=== PATIENT | female | born 1970 | race Caucasian/White ===

== ENCOUNTER 2016-12-21 17:50 | Observation (INO) | payer MEDICAID ==
[~2016-12-21] VITALS: Ht 157.5 cm; Wt 68.4 kg
[2016-12-21] VITALS (7 sets, daily range): BP systolic 105–151; BP diastolic 52–82
[~2016-12-21 17:50] MED LIST: ACET-2267 PO; ASPI-892 PO; ASPI-999 PO; ASPI81TA19 GT; ATOR20TA66 PO; BUPR200T2 PO; CALC-921 PO; CARV6.25 PO; CITA20TA4 PO; CLON0.5T3 PO; CLOP75TA69 PO; CLPD75T PO; IBUP-30 PO; METO-333 PO; METO25TA2 PO; NITR0.4T SL; PANT40TA2 PO; PRAV20TA3 PO
[2016-12-21] MEDS ORDERED: ASPIRIN 81 MG CHEW (CHILDREN'S ASA) PO ONE (18:45)
[2016-12-21] MEDS ORDERED: RX-NITROGLYCERIN 0.4 MG TAB BTL 25'S SL PRN (18:45)
[2016-12-21 18:57] LABS: BASOPHILS # (AUTO) 0.1 10^3/uL (0.0-0.1); BASOPHILS % (AUTO) 1 % (0-10); EOSINOPHILS # (AUTO) 0.3 10^3/uL (0.0-0.3); EOSINOPHILS % (AUTO) 3 % (0-10); LYMPHOCYTES # (AUTO) 3.1 X 10^3 (1.0-4.0); LYMPHOCYTES % (AUTO) 29 % (12-44); MEAN CORPUSCULAR HEMOGLOBIN 31 PG (25-34); MEAN CORPUSCULAR HGB CONC 34 G/DL (32-36); MEAN CORPUSCULAR VOLUME 91 FL (80-99); MEAN PLATELET VOLUME 9.8 FL (7.4-10.4); MONOCYTES # (AUTO) 0.8 X 10^3 (0.0-1.0); MONOCYTES % (AUTO) 7 % (0-12); NEUTROPHILS # (AUTO) 6.5 X 10^3 (1.8-7.8); NEUTROPHILS % (AUTO) 61 % (42-75); PLATELET COUNT 336 10^3/uL (130-400); RED CELL DISTRIBUTION WIDTH 14.3 % (10.0-14.5); WHITE BLOOD COUNT 10.6 10^3/uL (4.3-11.0)
[2016-12-21] MEDS ORDERED: NITROGLYCERIN 2% OINT 1 GM UNIT DOSE PACKET TOP ONE (19:00)
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
[2016-12-21 19:13] LABS: INR 0.9 (0.8-1.4); PROTHROMBIN TIME PATIENT 11.6 SEC (12.2-14.7)
[2016-12-21 19:19] LABS: ALANINE AMINOTRANSFERASE 21 U/L (0-55); ALBUMIN 4.4 G/DL (3.2-4.5); AMYLASE 55 U/L (25-125); ANION GAP 9 MMOL/L (5-14); ASPARTATE AMINO TRANSFERASE 17 U/L (5-34); BILIRUBIN,TOTAL 0.4 MG/DL (0.1-1.0); BLOOD UREA NITROGEN 15 MG/DL (7-18); BUN/CREATININE RATIO 15; CALCIUM 9.2 MG/DL (8.5-10.1); CARBON DIOXIDE 25 MMOL/L (21-32); CHLORIDE 105 MMOL/L (98-107); CREATINE KINASE 107 U/L (29-168); CREATININE SERUM 0.99 MG/DL (0.60-1.30); GFR ESTIMATED 60; GLUCOSE 98 MG/DL (70-105); LIPASE 22 U/L (8-78); SODIUM 139 MMOL/L (135-145)
--- NOTE | 2016-12-21 19:19 | Diagnostic Imaging Report ---
INDICATION: Chest pain. COMPARISON: 02/16/16. EXAMINATION: Single view of the chest was obtained. FINDINGS: Clear lungs, bilaterally. The heart size is normal. There is no pneumothorax. The osseous structures are normal. IMPRESSION: Negative chest. Dictated by: Dictated on workstation # [id number]
[2016-12-21 19:26] LABS: TROPONIN I < 0.30 NG/ML (<0.30)
[2016-12-21] MEDS ORDERED: morphine INJ 10 MG/ML 1ML (SYR OR VIAL) IVP STA (19:46)
[2016-12-21] MEDS ORDERED: cefTRIAXone INJECTION 1,000 MG in NS (IVPB) 50 ML IV ONE (20:00)
[2016-12-21] MEDS ORDERED: OSELTAMIVIR 75 MG (TAMIFLU) BOX OF 10 PO SCH (21:00)
[2016-12-21] MEDS ORDERED: morphine INJ 4 MG/ML 1 ML (VIAL/SYRINGE) IV PRN (21:15)
[2016-12-21] MEDS ORDERED: CATHETER FLUSH 10 ML SYR IV PRN (21:15)
[2016-12-21] MEDS ORDERED: NITROGLYCERIN SUBLINGUAL 0.4 MG TAB (NITROSTAT) SL PRN (21:15)
[2016-12-21 21:46] LABS: BILIRUBIN,URINE NEGATIVE (NEGATIVE); KETONES,URINE NEGATIVE (NEGATIVE); LEUKOCYTE ESTERASE ,URINE 1+ (NEGATIVE); NITRITE,URINE NEGATIVE (NEGATIVE); PH,URINE 5 (5-9); PROTEIN,URINE NEGATIVE (NEGATIVE); UROBILINOGEN,URINE NORMAL (NORMAL)
[2016-12-21] MEDS ORDERED: CATHETER FLUSH 10 ML SYR IV SCH (22:00)
[2016-12-21] MEDS ORDERED: ACETAMINOPHEN 500 MG TAB (TYLENOL) PO PRN (22:30)
[2016-12-21] MEDS: meTOprolol TARTRATE 25 MG (LOPRESSOR) TABLET PO SCH (23:01)
[2016-12-21] MEDS: GABAPENTIN 100 MG (NEURONTIN) CAP PO SCH (23:01)
[2016-12-22] VITALS: BP 114/65
[2016-12-22] MEDS ORDERED: NITROGLYCERIN 2% OINT 1 GM UNIT DOSE PACKET TOP SCH
[2016-12-22] MEDS ORDERED: NITROGLYCERIN 2% OINT 1 GM UNIT DOSE PACKET TOP PRN
[2016-12-22 01:00] VITALS: BP 109/61
[2016-12-22 04:00] VITALS: BP 110/71
[2016-12-22 04:03] LABS: BASOPHILS # (AUTO) 0.1 10^3/uL (0.0-0.1); BASOPHILS % (AUTO) 1 % (0-10); EOSINOPHILS # (AUTO) 0.3 10^3/uL (0.0-0.3); EOSINOPHILS % (AUTO) 3 % (0-10); LYMPHOCYTES # (AUTO) 3.5 X 10^3 (1.0-4.0); LYMPHOCYTES % (AUTO) 34 % (12-44); MEAN CORPUSCULAR HEMOGLOBIN 31 PG (25-34); MEAN CORPUSCULAR HGB CONC 34 G/DL (32-36); MEAN CORPUSCULAR VOLUME 92 FL (80-99); MEAN PLATELET VOLUME 10.5 FL (7.4-10.4); MONOCYTES # (AUTO) 0.9 X 10^3 (0.0-1.0); MONOCYTES % (AUTO) 8 % (0-12); NEUTROPHILS # (AUTO) 5.7 X 10^3 (1.8-7.8); NEUTROPHILS % (AUTO) 55 % (42-75); PLATELET COUNT 317 10^3/uL (130-400); RED CELL DISTRIBUTION WIDTH 14.2 % (10.0-14.5); WHITE BLOOD COUNT 10.3 10^3/uL (4.3-11.0)
[2016-12-22 04:16] LABS: ALBUMIN 4.1 G/DL (3.2-4.5); BILIRUBIN,TOTAL 0.4 MG/DL (0.1-1.0); CALCIUM 8.9 MG/DL (8.5-10.1); CREATININE SERUM 1.01 MG/DL (0.60-1.30); MYOGLOBIN SERUM 63.7 NG/ML (10.0-92.0); TOTAL PROTEIN 6.6 G/DL (6.4-8.2)
[2016-12-22 07:52] VITALS: BP 135/76
[2016-12-22] MEDS ORDERED: SPIR50TA PO (08:42)
[2016-12-22] MEDS ORDERED: PANT40TA3 PO (08:42)
[2016-12-22] MEDS ORDERED: METF500T8 PO (08:42)
[2016-12-22] MEDS ORDERED: ASPI-983 PO (08:42)
[2016-12-22] MEDS ORDERED: BUSP10TA95 PO (08:42)
[2016-12-22] MEDS ORDERED: GABA-486 PO (08:42)
[2016-12-22] MEDS ORDERED: PARO40TA3 PO (08:42)
[2016-12-22] MEDS ORDERED: CLOP75TA28 PO (08:42)
[2016-12-22] MEDS ORDERED: PRAV40TA2 PO (08:42)
--- NOTE | 2016-12-22 08:55 | Consultation-Cardiology ---
HPI-Cardiology Cardiology Consultation: Date of Consultation 12/22/16 Date of Admission Attending Physician Beba Villegas MD Admitting Physician Torri Bell DO Consulting Physician MAGUI GOODMAN MD, FACP, FACC, FSCAI, CCDS HPI: Chief Complaint: Back pain with some chest discomfort 46 yo woman admitted to Dr Villegas with exacerbation of chronic upper back pain. Also has had chronic intermittent L parasternal discomfort that last from a few seconds to a few hours. Had had the same discomfort last night. Feel well right now. Has had an increase in calorie intake recently and has gained considerable wgt. Has chronic exertional shortness of breath. Has chronic intermittent leg swelling. Denies fever or chills Review of Systems-Cardiology Review of Systems Constitutional: lightheadedness malaise tiredness weight gain (over the last several months due to increased calorie intake, according to her) Eyes: No vision change Ears/Nose/Throat: No ear discharge, No nasal drainage, No recent hearing loss Respiratory: As described under HPI Cardiovascular: As described under HPI Gastrointestinal: No constipation, No nausea, No vomiting Genitourinary: No dysuria, No hematuria Musculoskeletal: As describe under HPI Skin: No rash, No ulcerations Psychiatric/Neurological: No focal weakness, No seizure, No syncope Hematologic: No bleeding abnormalities ERB-Fmolvb-Tlevpy Hx Patient Social History Alcohol Use: Denies Use Recreational Drug Use: No Smoking Status: Current Everyday Smoker Type Used: Cigarettes 2nd Hand Smoke Exposure: No Recent Foreign Travel: No Recent Infectious Disease Expo: No Hospitalization with Isolation: Denies Physical Abuse Screen: No Sexual Abuse: No Immunizations Up To Date Tetanus Booster (TDap): More than 5yrs Date of Influenza Vaccine: Jun 17, 2015 Past Medical History PMH As described under Assessment. Family Medical History Family Medical History: No distinct fam h/o early CAD or SCD Family History: Diabetes mellitus grandmother FH: cholecystectomy 19 MOTHER Hypertension 19 MOTHER Allergies and Home Medications Allergies Coded Allergies: Penicillins (Verified Allergy, Unknown, 04/20/15) Uncoded Allergies: ANESTHETICS (Allergy, Severe, 09/11/13) HARD TO WAKE UP. Home Medications Aspirin 81 Mg Tablet. 81 MG PO DAILY (Reported) Bupropion HCl 200 Mg Tablet.er 200 MG PO BID (Reported) Buspirone HCl 10 Mg Tablet 10 MG PO TID (Reported) LAST FILLED #90 10-10-16 Calcium Carb/Magnesium Hydrox 1 Each Tab.chew 1 TAB.CHEW PO TID PRN PRN INDIGESTION (Reported) Clopidogrel Bisulfate 75 Mg Tablet 75 MG PO DAILY (Reported) Gabapentin 100 Mg Capsule 100 MG PO BID (Reported) Metformin HCl 500 Mg Tab.er.24h 500 MG PO BID (Reported) LAST FILLED #60 10-12-16 Metoprolol Tartrate 25 Mg Tablet 12.5 MG PO BID (Reported) TAKES 1/2 (25MG) TABLET Nitroglycerin 0.4 Mg Tab.subl 0.4 MG SL UD PRN PRN CHEST PAIN (Reported) Pantoprazole Sodium 40 Mg Tablet.dr 40 MG PO DAILY (Reported) Paroxetine HCl 40 Mg Tablet 40 MG PO DAILY (Reported) Pravastatin Sodium 40 Mg Tablet 40 MG PO DAILY (Reported) Spironolactone 50 Mg Tablet 50 MG PO DAILY (Reported) Physical Exam-Cardiology Physical Exam Vital Signs/I&O Vital Sign - Last 12Hours 12/21/16 12/21/16 12/21/16 12/21/16 21:00 21:00 21:15 21:30 Temp 97.8 97.8 97.8 Pulse 67 74 73 77 Resp 19 19 19 B/P 151/73 135/77 134/80 Pulse Ox 94 93 92 12/21/16 12/21/16 12/21/16 12/21/16 21:45 22:00 22:30 23:00 Temp 97.8 97.8 97.8 97.8 Pulse 66 81 72 67 Resp 18 18 18 18 B/P 148/81 121/75 128/82 105/52 Pulse Ox 94 93 96 96 12/22/16 12/22/16 12/22/16 12/22/16 00:00 00:00 01:00 01:19 Temp 98.1 98.1 98.1 Pulse 71 71 72 83 Resp 18 18 18 B/P 114/65 114/65 109/61 Pulse Ox 97 97 96 O2 Delivery Room Air 12/22/16 12/22/16 04:00 07:52 Temp 98.5 96.7 Pulse 83 68 Resp 18 18 B/P 110/71 135/76 Pulse Ox 93 95 O2 Delivery Room Air Room Air Capillary Refill : Less Than 3 Seconds Constitutional: AAO x 3 well-developed well-nourished other (obsed) HEENT: PERRL EOMI Neck: No carotid bruit, carotid pulses are 2 + bilaterally Respiratory: No accessory muscle use, lungs clear to percussion lungs clear to auscultation Cardiovascular: regular rate-rhythm S1 and S2 Gastrointestinal: No tender, softNo guarding, audible bowel sounds Extremities: No clubbing, No cyanosis, No significant edema Neurologic/Psychiatric: oriented x 3 grossly intact power is 5/5 both on sides Skin: No rash on exposed areas, No ulcerations on exposed areas Data Review Labs Laboratory Tests 12/21/16 18:50: Activated Partial Thromboplast Time 31, Alanine Aminotransferase (ALT/SGPT) 21, Albumin 4.4, Alkaline Phosphatase 70, Amylase Level 55, Anion Gap 9, Aspartate Amino Transf (AST/SGOT) 17, B-Type Natriuretic Peptide 12.6, BUN/Creatinine Ratio 15, Basophils # (Auto) 0.1, Basophils (%) (Auto) 1, Blood Urea Nitrogen 15 , Calcium Level 9.2, Carbon Dioxide Level 25, Chloride Level 105, Creatine Kinase MB 2.1, Creatinine 0.99, Eosinophils # (Auto) 0.3, Eosinophils (%) (Auto ) 3, Estimat Glomerular Filtration Rate 60, Glucose Level 98, Hematocrit 44, Hemoglobin 14.9, INR Comment 0.9, Lipase 22, Lymphocytes # (Auto) 3.1, Lymphocytes (%) (Auto) 29, Magnesium Level 2.0, Mean Corpuscular Hemoglobin 31, Mean Corpuscular Hemoglobin Concent 34, Mean Corpuscular Volume 91, Mean Platelet Volume 9.8, Monocytes # (Auto) 0.8, Monocytes (%) (Auto) 7, Neutrophils # (Auto) 6.5, Neutrophils (%) (Auto) 61, Platelet Count 336, Potassium Level 4.0, Prothrombin Time 11.6L, Red Blood Count 4.80, Red Cell Distribution Width 14.3, Serum Test, Qualitative NEGATIVE, Sodium Level 139, Total Bilirubin 0.4, Total Creatine Kinase 107, Total Protein 7.0, Troponin I < 0.30, White Blood Count 10.6 12/21/16 20:30: Ur Tricyclic Antidepressants Screen NEGATIVE, Urine Amphetamines Screen NEGATIVE , Urine Barbiturates Screen NEGATIVE, Urine Benzodiazepines Screen NEGATIVE, Urine Cannabinoids Screen NEGATIVE, Urine Cocaine Screen NEGATIVE, Urine Methadone Screen NEGATIVE, Urine Methamphetamines Screen NEGATIVE, Urine Opiates Screen POSITIVEH, Urine Oxycodone Screen NEGATIVE, Urine Phencyclidine Screen NEGATIVE, Urine Propoxyphene Screen NEGATIVE 12/21/16 20:32: Urine Bacteria FEWH, Urine Bilirubin NEGATIVE, Urine Casts NONE, Urine Clarity SLIGHTLY CLOUDY, Urine Color YELLOW, Urine Crystals NONE, Urine Culture Indicated NO, Urine Glucose (UA) NEGATIVE, Urine Ketones NEGATIVE, Urine Leukocyte Esterase 1+H, Urine Mucus NEGATIVE, Urine Nitrite NEGATIVE, Urine Protein NEGATIVE, Urine RBC 2-5H, Urine RBC (Auto) 2+H, Urine Specific [place] 1.020, Urine Squamous Epithelial Cells 10-25H, Urine Urobilinogen NORMAL, Urine WBC 2-5, Urine pH 5 12/22/16 01:05: Troponin I < 0.30 12/22/16 03:30: Alanine Aminotransferase (ALT/SGPT) 20, Albumin 4.1, Alkaline Phosphatase 56, Anion Gap 13, Aspartate Amino Transf (AST/SGOT) 17, BUN/Creatinine Ratio 14, Basophils # (Auto) 0.1, Basophils (%) (Auto) 1, Blood Urea Nitrogen 14, Calcium Level 8.9, Carbon Dioxide Level 21, Chloride Level 104, Cholesterol Level 192, Creatinine 1.01, Eosinophils # (Auto) 0.3, Eosinophils (%) (Auto) 3, Estimat Glomerular Filtration Rate 59, Glucose Level 100, HDL Cholesterol 38L, Hematocrit 40, Hemoglobin 13.6, LDL Cholesterol Direct 147H, Lymphocytes # (Auto ) 3.5, Lymphocytes (%) (Auto) 34, Mean Corpuscular Hemoglobin 31, Mean Corpuscular Hemoglobin Concent 34, Mean Corpuscular Volume 92, Mean Platelet Volume 10.5H, Monocytes # (Auto) 0.9, Monocytes (%) (Auto) 8, Myoglobin 63.7, Neutrophils # (Auto) 5.7, Neutrophils (%) (Auto) 55, Platelet Count 317, Potassium Level 4.0, Red Blood Count 4.40, Red Cell Distribution Width 14.2, Sodium Level 138, Total Bilirubin 0.4, Total Protein 6.6, Triglycerides Level 106, VLDL Cholesterol 21, White Blood Count 10.3 Laboratory Tests 12/21/16 18:50 12/22/16 03:30 A/P-Cardiology Assessment/Admission Diagnosis Chest discomfort, nonspecific, without any evidence of ACS H/o stenting of RCA on 12/04/[address] Fish at [place], [place]: Promus Premier 2.25x12 and 2.5x20 stents. Thrombectomy of previous stents and placement of additional 3.5x20 mm Promus Premier stent on 04/20/15. In Jun, she underwent ANGELA of the prox mid PDA (Promus Ramy 2.5 x 20) by Dr Liz at [facility]. Cardiac cath of February 2016 showed patent stents in the mid RCA. Patent stent in the PDA of the RCA. The mid RCA stented area showes approx 30% angiographic stenosis. LVEF 60%. Elevated LVEDP. No significant MR Echo of 04/22/15 showed LVEF 65%, mild MR & TR, and PASP 25 mmHg H/o noncompliance with meds, now compliant since last [place] of 04/20/15 Chronic epigastric discomfort and nausea, suggetive of PUD or GERD or other GI pathology Chronic chest wall discomfort Obesity with BMI approx 46 Chronic tobacco use, continuing H/o methamphetamine use, has stopped since last [place] of 04/20/15 Anxiety H/o statin intolerance, nonspecific, but has lately been able to take it Discussion and Recomendations * Have advised outpatient f/u * Have advised med complianc * Have advised immediate and complete smoking cessation * Have advised wgt loss and have discussed strategies for that Clinical Quality Measures AMI/AHF: ASA po Prior to arrival: No DVT/VTE Risk/Contraindication: Risk Factor Score Per Nursin RFS Level Per Nursing on Admit: 4+=Very High MAGUI GOODMAN MD FACP FAC CCDS Dec 22, 2016 08:55
[2016-12-22] MEDS ORDERED: ASPIRIN E.C. 325 MG (ECOTRIN) TABLET PO SCH (09:00)
[2016-12-22] MEDS ORDERED: CHOL500049 PO (09:04)
[2016-12-22] MEDS ORDERED: EST30C VG (09:04)
[2016-12-22] MEDS: GABAPENTIN 100 MG (NEURONTIN) CAP PO SCH (09:44)
[2016-12-22] MEDS: meTOprolol TARTRATE 25 MG (LOPRESSOR) TABLET PO SCH (09:44)
[2016-12-22] MEDS ORDERED: FLU TRIvalent (5 YOA+) 2016-17 (AFLURIA) 0.5 ML IM ONE (09:45)
--- NOTE | 2016-12-22 11:22 | Discharge Instructions ---
Discharge [facility] Discharge Medications Continued Medications: Aspirin (Aspirin EC) 81 Mg Tablet.dr 81 MG PO DAILY TAB Buspirone HCl (Buspirone HCl) 10 Mg Tablet 10 MG PO TID LAST FILLED #90 10-10-16 TAB Cholecalciferol (Vitamin D3) (Vitamin D3) 50,000 Unit Capsule 64407 UNITS PO Mo Clopidogrel Bisulfate (Clopidogrel) 75 Mg Tablet 75 MG PO DAILY TAB Estrogens Conjugated (Premarin) 30 Gm Cr VG TWICE WEEKLY EA Gabapentin (Gabapentin) 100 Mg Capsule 100 MG PO BID CAP Metformin HCl (Metformin HCl ER) 500 Mg Tab.er.24h 1000 MG PO DAILY LAST FILLED #60 10-12-16 TAKES 2 (500MG) TABLETS TAB Metoprolol Tartrate (Metoprolol Tartrate) 25 Mg Tablet 12.5 MG PO BID TAKES 1/2 (25MG) TABLET TAB Nitroglycerin (Nitrostat) 0.4 Mg Tab.subl 0.4 MG SL UD PRN CHEST PAIN TAB Pantoprazole Sodium (Pantoprazole Sodium) 40 Mg Tablet.dr 40 MG PO DAILY TAB Paroxetine HCl (Paroxetine HCl) 40 Mg Tablet 40 MG PO DAILY TAB Pravastatin Sodium (Pravastatin Sodium) 40 Mg Tablet 40 MG PO DAILY TAB Spironolactone (Aldactone) 50 Mg Tablet 50 MG PO DAILY TAB Patient Instructions Goal/Follow Up Appt: Follow up with Syd Bojorquez APRN on December 28 at 3:20 pm. Return to [facility] For: Fever, worsening chest pain, shortness of breath Activity & Diet Discharge Diet: ADA Diet Activity as Tolerated: Yes Copy Copies To 1: JORDON Coello BETHANY N MD Dec 22, 2016 11:22 am
[2016-12-22 11:45] VITALS: BP_SYST 116; BP_SYST 124; BP_DIAS 64; BP_DIAS 71
[2016-12-22 12:17] VITALS: BP 135/76
--- NOTE | 2016-12-22 16:24 | Short Stay Summary ---
HPI History of Present Illness: Patient presented to ER after having onset of back pain and then coldness in her chest and numbness and tingling in her hands and arms starting around 3:30 pm and which did not resolve until she received nitropaste. She is feeling better this morning. Source: patient Attending Physician Beba Villegas MD PCP Torri Bell DO Consult Date of Admission Dec 21, 2016 at 8:20 pm Home Medications Home Medications Reviewed patient Home Medication Reconciliation Form Allergies Coded Allergies: Penicillins (Verified Allergy, Unknown, 04/20/15) Uncoded Allergies: ANESTHETICS (Allergy, Severe, 09/11/13) HARD TO WAKE UP. [id number] Hx Patient Social History Alcohol Use: Denies Use Recreational Drug Use: No Smoking Status: Current Everyday Smoker Type Used: Cigarettes 2nd Hand Smoke Exposure: No Recent Foreign Travel: No Contact w/other who traveled: No Recent Hopitalizations: No Recent Infectious Disease Expo: No Physical Abuse Screen: No Sexual Abuse: No Immunizations Up To Date Tetanus Booster (TDap): More than 5yrs Date of Influenza Vaccine: Jun 17, 2015 Past Medical History PMHx: CA s/p stenting Hyperlipidemia Anxiety Tobacco abuse SurgHx: x 3 Tubal ligation Cardiac stenting Hernia repair Family Medical History Significant Family History: Diabetes, Hypertension Review of Systems ([facility]) Constitutional: No fever Cardiovascular: see HPI Reviewed Test Results Reviewed Test Results Lab Laboratory Tests Test 12/21/16 18:50 12/21/16 20:30 12/21/16 20:32 12/22/16 01:05 Range/Units Activated Partial Thromboplast Time 31 24-35 SEC Alanine Aminotransferase (ALT/SGPT) 21 0-55 U/L Albumin 4.4 3.2-4.5 G/DL Alkaline Phosphatase 70 40-136 U/L Amylase Level 55 25-125 U/L Anion Gap 9 5-14 MMOL/L Aspartate Amino Transf (AST/SGOT) 17 5-34 U/L B-Type Natriuretic Peptide 12.6 <100.0 PG/ML BUN/Creatinine Ratio 15 Basophils # (Auto) 0.1 0.0-0.1 10^3/uL Basophils (%) (Auto) 1 0-10 % Blood Urea Nitrogen 15 7-18 MG/DL Calcium Level 9.2 8.5-10.1 MG/DL Carbon Dioxide Level 25 21-32 MMOL/L Chloride Level 105 98-107 MMOL/L Creatine Kinase MB 2.1 <6.6 NG/ML Creatinine 0.99 0.60-1.30 MG/DL Eosinophils # (Auto) 0.3 0.0-0.3 10^3/uL Eosinophils (%) (Auto) 3 0-10 % Estimat Glomerular Filtration Rate 60 Glucose Level 98 70-105 MG/DL Hematocrit 44 35-52 % Hemoglobin 14.9 11.5-16.0 G/DL INR Comment 0.9 0.8-1.4 Lipase 22 8-78 U/L Lymphocytes # (Auto) 3.1 1.0-4.0 X 10^3 Lymphocytes (%) (Auto) 29 12-44 % Magnesium Level 2.0 1.8-2.4 MG/DL Mean Corpuscular Hemoglobin 31 25-34 PG Mean Corpuscular Hemoglobin Concent 34 32-36 G/DL Mean Corpuscular Volume 91 80-99 FL Mean Platelet Volume 9.8 7.4-10.4 FL Monocytes # (Auto) 0.8 0.0-1.0 X 10^3 Monocytes (%) (Auto) 7 0-12 % Neutrophils # (Auto) 6.5 1.8-7.8 X 10^3 Neutrophils (%) (Auto) 61 42-75 % Platelet Count 336 130-400 10^3/uL Potassium Level 4.0 3.6-5.0 MMOL/L Prothrombin Time 11.6 L 12.2-14.7 SEC Red Blood Count 4.80 4.35-5.85 10^6/uL Red Cell Distribution Width 14.3 10.0-14.5 % Serum Test, Qualitative NEGATIVE NEGATIVE Sodium Level 139 135-145 MMOL/L Total Bilirubin 0.4 0.1-1.0 MG/DL Total Creatine Kinase 107 29-168 U/L Total Protein 7.0 6.4-8.2 G/DL Troponin I < 0.30 < 0.30 <0.30 NG/ML White Blood Count 10.6 4.3-11.0 10^3/uL Ur Tricyclic Antidepressants Screen NEGATIVE NEGATIVE Urine Amphetamines Screen NEGATIVE NEGATIVE Urine Barbiturates Screen NEGATIVE NEGATIVE Urine Benzodiazepines Screen NEGATIVE NEGATIVE Urine Cannabinoids Screen NEGATIVE NEGATIVE Urine Cocaine Screen NEGATIVE NEGATIVE Urine Methadone Screen NEGATIVE NEGATIVE Urine Methamphetamines Screen NEGATIVE NEGATIVE Urine Opiates Screen POSITIVE H NEGATIVE Urine Oxycodone Screen NEGATIVE NEGATIVE Urine Phencyclidine Screen NEGATIVE NEGATIVE Urine Propoxyphene Screen NEGATIVE NEGATIVE Urine Bacteria FEW H /HPF Urine Bilirubin NEGATIVE NEGATIVE Urine Casts NONE /LPF Urine Clarity SLIGHTLY CLOUDY Urine Color YELLOW Urine Crystals NONE /LPF Urine Culture Indicated NO Urine Glucose (UA) NEGATIVE NEGATIVE Urine Ketones NEGATIVE NEGATIVE Urine Leukocyte Esterase 1+ H NEGATIVE Urine Mucus NEGATIVE /LPF Urine Nitrite NEGATIVE NEGATIVE Urine Protein NEGATIVE NEGATIVE Urine RBC 2-5 H /HPF Urine RBC (Auto) 2+ H NEGATIVE Urine Specific [place] 1.020 1.016-1.022 Urine Squamous Epithelial Cells 10-25 H /HPF Urine Urobilinogen NORMAL NORMAL MG/DL Urine WBC 2-5 /HPF Urine pH 5 5-9 Test 12/22/16 03:30 Range/Units Alanine Aminotransferase (ALT/SGPT) 20 0-55 U/L Albumin 4.1 3.2-4.5 G/DL Alkaline Phosphatase 56 40-136 U/L Anion Gap 13 5-14 MMOL/L Aspartate Amino Transf (AST/SGOT) 17 5-34 U/L BUN/Creatinine Ratio 14 Basophils # (Auto) 0.1 0.0-0.1 10^3/uL Basophils (%) (Auto) 1 0-10 % Blood Urea Nitrogen 14 7-18 MG/DL Calcium Level 8.9 8.5-10.1 MG/DL Carbon Dioxide Level 21 21-32 MMOL/L Chloride Level 104 98-107 MMOL/L Cholesterol Level 192 < 200 MG/DL Creatinine 1.01 0.60-1.30 MG/DL Eosinophils # (Auto) 0.3 0.0-0.3 10^3/uL Eosinophils (%) (Auto) 3 0-10 % Estimat Glomerular Filtration Rate 59 Glucose Level 100 70-105 MG/DL HDL Cholesterol 38 L 40-60 MG/DL Hematocrit 40 35-52 % Hemoglobin 13.6 11.5-16.0 G/DL LDL Cholesterol Direct 147 H 1-129 MG/DL Lymphocytes # (Auto) 3.5 1.0-4.0 X 10^3 Lymphocytes (%) (Auto) 34 12-44 % Mean Corpuscular Hemoglobin 31 25-34 PG Mean Corpuscular Hemoglobin Concent 34 32-36 G/DL Mean Corpuscular Volume 92 80-99 FL Mean Platelet Volume 10.5 H 7.4-10.4 FL Monocytes # (Auto) 0.9 0.0-1.0 X 10^3 Monocytes (%) (Auto) 8 0-12 % Myoglobin 63.7 10.0-92.0 NG/ML Neutrophils # (Auto) 5.7 1.8-7.8 X 10^3 Neutrophils (%) (Auto) 55 42-75 % Platelet Count 317 130-400 10^3/uL Potassium Level 4.0 3.6-5.0 MMOL/L Red Blood Count 4.40 4.35-5.85 10^6/uL Red Cell Distribution Width 14.2 10.0-14.5 % Sodium Level 138 135-145 MMOL/L Total Bilirubin 0.4 0.1-1.0 MG/DL Total Protein 6.6 6.4-8.2 G/DL Triglycerides Level 106 <150 MG/DL VLDL Cholesterol 21 5-40 MG/DL White Blood Count 10.3 4.3-11.0 10^3/uL Physical Exam-([facility]) Physical Exam Vital Signs VS - Last 72 Hours, by Label 12/21/16 12/21/16 12/21/16 12/21/16 18:30 18:30 20:22 20:30 Temp 98.7 98.7 Pulse 75 71 Resp 20 19 B/P 144/115 Pulse Ox 97 95 94 O2 Delivery Room Air Room Air Room Air 12/21/16 12/21/16 12/21/16 12/21/16 21:00 21:00 21:15 21:30 Temp 97.8 97.8 97.8 Pulse 67 74 73 77 Resp 19 19 19 B/P 151/73 135/77 134/80 Pulse Ox 94 93 92 12/21/16 12/21/16 12/21/16 12/21/16 21:45 22:00 22:30 23:00 Temp 97.8 97.8 97.8 97.8 Pulse 66 81 72 67 Resp 18 18 18 18 B/P 148/81 121/75 128/82 105/52 Pulse Ox 94 93 96 96 12/22/16 12/22/16 12/22/16 12/22/16 00:00 00:00 01:00 01:19 Temp 98.1 98.1 98.1 Pulse 71 71 72 83 Resp 18 18 18 B/P 114/65 114/65 109/61 Pulse Ox 97 97 96 O2 Delivery Room Air 12/22/16 12/22/16 12/22/16 12/22/16 04:00 04:00 07:00 07:52 Temp 98.5 96.7 Pulse 83 68 68 Resp 18 18 B/P 110/71 135/76 Pulse Ox 93 94 95 O2 Delivery Room Air Room Air 12/22/16 12/22/16 11:45 12:17 Temp 98.5 Pulse 73 68 Resp 16 18 B/P 124/64 135/76 Pulse Ox 95 95 O2 Delivery Room Air Capillary Refill : Less Than 3 Seconds General Appearance: WD/WN no apparent distress Respiratory: lungs clear normal breath sounds Cardiovascular: regular rate, rhythm no murmur Gastrointestinal: normal bowel sounds non tender soft Neurologic/Psychiatric: normal mood/affect Short Stay Diagnosis Discharge Diagnosis-Short Stay Admission Diagnosis Chest pain Final Discharge Diagnosis Chest pain- with history of stenting, seen by Cardiology and not felt to be cardiac. Negative enzymes and no acute EKG changes. Discharged to home. Conclusion Plan See final discharge diagnosis Clinical Quality Measures AMI/AHF: ASA po Prior to arrival: No DVT/VTE Risk/Contraindication: Risk Factor Score Per Nursin RFS Level Per Nursing on Admit: 4+=Very High Copy Copies To 1: JORDON Coello BETHANY N MD Dec 22, 2016 4:24 pm
== END 2016-12-22 11:19 | disposition home or self-care (01) ==
LOC: EDUNIT# 17:50 → ER 17:51 → CSD 20:02 → UNDOADMOB 20:02 → CSD 20:20 → UNDODISOB 12-22 12:10
PROVIDERS: ADMIT Family Medicine; ATTEND Family Medicine
DX: R07.9 Chest pain, unspecified (principal); I25.10 Atherosclerotic heart disease of native coronary artery without angina pectoris; I10 Essential (primary) hypertension; E78.5 Hyperlipidemia, unspecified; F41.9 Anxiety disorder, unspecified; K21.9 Gastro-esophageal reflux disease without esophagitis; G62.9 Polyneuropathy, unspecified; F17.210 Nicotine dependence, cigarettes, uncomplicated; E66.9 Obesity, unspecified; Z68.42 Body mass index [BMI] 45.0-49.9, adult; Z95.5 Presence of coronary angioplasty implant and graft; Z79.82 Long term (current) use of aspirin; Z79.899 Other long term (current) drug therapy; Z23 Encounter for immunization
CPT/HCPCS: 36415; 71010; 80053; 80061; 80306; 81000; 82150; 82550; 82553; 83690; 83735; 83874; 83880; 84484; 84703; 85025; 85610; 85730; 93005; 93041; 96374; G0378

== ENCOUNTER 2017-06-14 05:42 | Outpatient (CLI) | payer MEDICAID ==
[~2017-06-14] VITALS: Ht 157.5 cm; Wt 113.7 kg
[~2017-06-14 05:42] MED LIST changes: +ASPI-983 PO; +BUSP10TA95 PO; +CHOL500049 PO; +CLOP75TA28 PO; +EST30C VG; +GABA-486 PO; +METF500T8 PO; +PANT40TA3 PO; +PARO40TA3 PO; +PRAV40TA2 PO; +SPIR50TA PO
== END 2017-06-14 14:57 ==
LOC: PREOP 05:42
PROVIDERS: ATTEND Surgery
DX: Z01.818 Encounter for other preprocedural examination (principal); K21.9 Gastro-esophageal reflux disease without esophagitis; K92.1 Melena; Z80.0 Family history of malignant neoplasm of digestive organs

== ENCOUNTER 2017-06-19 12:46 | Day surgery (SDC) | payer MEDICAID ==
[~2017-06-19] VITALS: Ht 157.5 cm; Wt 113.7 kg
[2017-06-19] MEDS ORDERED: LACTATED RINGERS 1,000 ML IV ONE ×2 (12:56→13:15)
--- NOTE | 2017-06-19 13:11 | Progress Note-Pre Operative ---
Pre-Operative Progress Note H&P Reviewed The H&P was reviewed, patient examined and no changes noted. Date Seen by Provider: Jun 19, 2017 Time Seen by Provider: 13:10 Date H&P Reviewed: Jun 19, 2017 Time H&P Reviewed: 13:10 Pre-Operative Diagnosis: gerd, bright red blood in stool, family history colon cancer YULISSA YODER DO Jun 19, 2017 1:11 pm
[2017-06-19 13:13] VITALS: BP 137/71
[2017-06-19] MEDS ORDERED: BENZOCAINE 20% SPRAY (HURRICANE) 60 ML CAN MT ONE (13:15)
[2017-06-19] MEDS ORDERED: PROPOFOL INJECTION 50 ML IV ONE (13:16)
[2017-06-19] MEDS ORDERED: MIDAZOLAM 2 MG/2 ML (VERSED) VIAL ONE (13:16)
[2017-06-19] MEDS ORDERED: HURRICAINE EXT TUBE (BENZOCAINE) ONE (13:17)
[2017-06-19] MEDS ORDERED: proPOfol 200 MG/20 ML (DIPRIVAN) VIAL IV ONE (13:49)
--- NOTE | 2017-06-19 14:06 | Progress Note-Post Operative ---
Post-Operative Progess Note Surgeon (s)/Wind Turbine Mechanical Engineer (s) Surgeon YULISSA YODER DO Wind Turbine Mechanical Engineer: na Pre-Operative Diagnosis gerd, bright red blood in stool, family history colon cancer Post-Operative Diagnosis hiatal hernia, gastritis, colon polyps Procedure & Operative Findings Date of Procedure 06/19/17 Procedure Performed/Findings egd c biopsies and colonoscopy with hot bx polypectomy x 7 Anesthesia Type per head silverman Estimated Blood Loss Estimated blood loss (mL): scant Specimens/Packing Specimens Removed antrum, body and colon polyps YULISSA YODER DO Jun 19, 2017 2:06 pm
[2017-06-19] MEDS ORDERED: SUCR1TAB36 PO (14:10)
--- NOTE | 2017-06-19 14:11 | Discharge Inst-Simple/Standard ---
Discharge Inst-Standard Discharge Medications New, Converted or Re-Newed RX: Transmitted to Pharmacy Patient Instructions/Follow Up Plan of Care/Instructions/FU: 2-3 weeks Andrea Hold aspirin and plavix for 4 more days then restart Activity as Tolerated: Yes Discharge Diet: Regular Diet YULISSA YODER DO Jun 19, 2017 2:11 pm
[2017-06-19 14:25] VITALS: BP 136/81
[2017-06-19 14:50] VITALS: BP 139/89
[2017-06-19 14:55] VITALS: BP 139/89
--- NOTE | 2017-06-19 16:50 | OPERATIVE REPORT ---
DATE OF SERVICE: 06/19/2017 PREOPERATIVE DIAGNOSES: 1. Gastroesophageal reflux disease. 2. Bright red blood in stool. 3. Family history of colon cancer. POSTOPERATIVE DIAGNOSES: 1. Hiatal hernia. 2. Gastritis. 3. Colon polyps. PROCEDURE: EGD with biopsies and colonoscopy with hot biopsy polypectomy x7. ANESTHESIA: Per MANAGER OF LOSS PREVENTION OPERATIONS. ESTIMATED BLOOD LOSS: Scant. SPECIMENS: Antrum, body and colon polyps. INDICATIONS: The patient is a 47-year-old female with reflux symptoms and bright red blood in the stool with family history of colon cancer. She was recommended to have EGD and colonoscopy. She understands risks and benefits and wishes to proceed. Consent was signed and on chart. DESCRIPTION OF PROCEDURE: The patient was taken to the endoscopy suite, placed in left lateral recumbent position. Timeout was performed. Scope was inserted in mouth, down into esophagus, stomach and into the duodenum without difficulty. There are no polyps, masses or ulcerations. Scope was then slowly retracted back into the stomach, which was further insufflated noting some erythematous and inflamed areas. Biopsy of the antrum was obtained. Biopsy of the body was also obtained. Scope was also retroflexed noting a small hiatal hernia. No other pathology noted. Scope was returned to its normal position, slowly withdrawn to the distal esophagus which had no erythematous changes. No polyps, masses or ulcerations. Scope was slowly retracted back noting no other pathology. Digital rectal exam was performed. There were no palpable polyps, masses or ulcerations. Scope was inserted into the rectum and advanced all the way to the cecum with minimal difficulty. There were no polyps, masses or ulcerations. Scope was slowly retracted back . Prep was adequate. There were no polyps, masses or ulcerations in the cecum, ascending and transverse colon. The descending colon had a small polyp was present, which hot biopsy polypectomy was performed. Scope was continued slowly retracted back into the sigmoid colon where there are three small polyps present, which hot biopsy polypectomy was performed. Scope was continuously retracted back into the rectum where a small area of three more small polyps were present, which hot biopsy polypectomy was performed. Scope was also retroflexed noting no other pathology. Scope was returned to its normal position, slowly withdrawn until completely removed. The patient tolerated the procedure well without any complications. She was taken to recovery room in stable condition. RECOMMENDATIONS: The patient will follow up in the office in two to three weeks to discuss pathology. We recommend repeat colonoscopy in three years for reevaluation due to the multiple small polyps. The patient is currently on Protonix, will add Carafate to see if she has any improvement in her symptoms. Job ID: [id number] DocumentID: [id number] Dictated Date: 06/19/2017 14:09:25 Television And Radio Repairer Date: 06/19/2017 16:49:10 Dictated By: YULISSA YODER DO
== END 2017-06-19 14:55 | disposition home or self-care (01) ==
LOC: ENDO 12:46
PROVIDERS: ATTEND Surgery
DX: K92.1 Melena (principal); D12.5 Benign neoplasm of sigmoid colon; K63.5 Polyp of colon; K62.1 Rectal polyp; K21.9 Gastro-esophageal reflux disease without esophagitis; K44.9 Diaphragmatic hernia without obstruction or gangrene; K29.70 Gastritis, unspecified, without bleeding; Z80.0 Family history of malignant neoplasm of digestive organs; I25.10 Atherosclerotic heart disease of native coronary artery without angina pectoris; E78.5 Hyperlipidemia, unspecified; F17.210 Nicotine dependence, cigarettes, uncomplicated; F32.9 Major depressive disorder, single episode, unspecified; F41.9 Anxiety disorder, unspecified; Z95.5 Presence of coronary angioplasty implant and graft; Z79.02 Long term (current) use of antithrombotics/antiplatelets; Z79.82 Long term (current) use of aspirin; Z79.899 Other long term (current) drug therapy

== ENCOUNTER → 2018-04-16 | Outpatient (CLI) | payer MEDICAID ==
[~2018-04-16] MED LIST changes: +REGADENOSON 0.4 MG/5 ML SYR (LEXISCAN) IV ONE; +SUCR1TAB36 PO
[2018-04-16] MEDS: CATHETER FLUSH 10 ML SYR IV PRN ×2 (11:59→13:13)
[2018-04-16 13:10] VITALS: BP 131/75
--- NOTE | 2018-04-17 01:38 | STRESS TEST ---
DATE OF SERVICE: 04/16/2018 RESTING AND POST-REGADENOSON TECHNETIUM-99M TETROFOSMIN SPECT CT IMAGING ORDERING PHYSICIAN: Sayda Currie APRN. PRIMARY CARE PHYSICIAN: Dr. Bell. OTHER PHYSICIAN: [facility]. Baseline images were carried out after injection of 9.98 mCi of technetium-99m Tetrofosmin. This was followed by 0.4 mg of regadenoson and 30.7 mCi of technetium-99m Tetrofosmin for stress imaging. The electrocardiogram showed sinus rhythm and the electrocardiogram did not change significantly with the regadenoson infusion. The patient tolerated the procedure well. Review of images at rest and following stress does not indicate any significant perfusion defects consistent with significant myocardial ischemia or infarction. Gated images show normal global left ventricular systolic function with normal regional wall motion. Left ventricular ejection fraction is calculated to be 69%. Left ventricular end diastolic volume is 56 mL. TID is absent (1.02). CONCLUSIONS: 1. No evidence of significant myocardial ischemia or infarction on this study. 2. Normal regional wall motion. 3. Normal global left ventricular systolic function with a calculated ejection fraction of 69%. Job ID: [id number] DocumentID: [id number] Dictated Date: 04/16/2018 20:00:12 Mill Roll Rewinder Date: 04/17/2018 01:37:31 Dictated By: MAGUI GOODMAN MD, MA, FACP, FACC,
== END ==
LOC: CARD 11:38
PROVIDERS: ATTEND Nurse Practitioner Family
DX: R07.89 Other chest pain (principal); I25.10 Atherosclerotic heart disease of native coronary artery without angina pectoris; I77.89 Other specified disorders of arteries and arterioles; E78.5 Hyperlipidemia, unspecified; E66.09 Other obesity due to excess calories; Z72.0 Tobacco use
CPT/HCPCS: 78452; 93017

== ENCOUNTER 2019-02-26 17:12 | Emergency (ER) | payer MEDICAID, OTHER ==
[~2019-02-26] VITALS: Ht 157.5 cm; Wt 113.4 kg
[~2019-02-26 17:12] MED LIST changes: -REGADENOSON 0.4 MG/5 ML SYR (LEXISCAN) IV ONE
[2019-02-26 18:11] LABS: BILIRUBIN,URINE NEGATIVE (NEGATIVE); CLARITY,URINE SLIGHTLY CLOUDY; COLOR,URINE YELLOW; GLUCOSE, URINE (UA) NEGATIVE (NEGATIVE); KETONES,URINE NEGATIVE (NEGATIVE); LEUKOCYTE ESTERASE ,URINE 1+ (NEGATIVE); NITRITE,URINE NEGATIVE (NEGATIVE); PH,URINE 6 (5-9); PROTEIN,URINE NEGATIVE (NEGATIVE); UROBILINOGEN,URINE NORMAL (NORMAL)
[2019-02-26] MEDS ORDERED: LACTATED RINGERS 1,000 ML IV ONE (18:11)
[2019-02-26] MEDS ORDERED: KETOROLAC 30 MG/ML VIAL IVP ONE (18:15)
[2019-02-26] MEDS ORDERED: ONDANSETRON 4 MG/2 ML (SDV) Z0FRAN IVP ONE (18:15)
[2019-02-26 18:19] LABS: BASOPHILS % (AUTO) 0 % (0-10); EOSINOPHILS # (AUTO) 0.3 10^3/uL (0.0-0.3); EOSINOPHILS % (AUTO) 2 % (0-10); HEMATOCRIT 41 % (35-52); HEMOGLOBIN 13.8 G/DL (11.5-16.0); LYMPHOCYTES # (AUTO) 2.9 X 10^3 (1.0-4.0); LYMPHOCYTES % (AUTO) 26 % (12-44); MEAN CORPUSCULAR HEMOGLOBIN 30 PG (25-34); MEAN CORPUSCULAR HGB CONC 33 G/DL (32-36); MEAN CORPUSCULAR VOLUME 89 FL (80-99); MEAN PLATELET VOLUME 9.6 FL (7.4-10.4); MONOCYTES % (AUTO) 9 % (0-12); NEUTROPHILS # (AUTO) 7.1 X 10^3 (1.8-7.8); NEUTROPHILS % (AUTO) 63 % (42-75); PLATELET COUNT 326 10^3/uL (130-400); RED CELL DISTRIBUTION WIDTH 14.8 % (10.0-14.5); WHITE BLOOD COUNT 11.1 10^3/uL (4.3-11.0)
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
[2019-02-26 18:22] LABS: BACTERIA,URINE FEW /HPF; RBC,URINE 0-2 /HPF
[2019-02-26] MEDS ORDERED: ASPIRIN 81 MG CHEW (CHILDREN'S ASA) PO ONE (18:30)
[2019-02-26 18:33] LABS: ALANINE AMINOTRANSFERASE 19 U/L (0-55); ALBUMIN 4.2 GM/DL (3.2-4.5); ALKALINE PHOSPHATASE 67 U/L (40-136); BILIRUBIN,TOTAL 0.3 MG/DL (0.1-1.0); BUN/CREATININE RATIO 16; CALCIUM 9.1 MG/DL (8.5-10.1); CARBON DIOXIDE 24 MMOL/L (21-32); CHLORIDE 106 MMOL/L (98-107); CREATININE SERUM 0.83 MG/DL (0.60-1.30); GFR ESTIMATED > 60; GLUCOSE 88 MG/DL (70-105); LIPASE 23 U/L (8-78); MAGNESIUM 1.8 MG/DL (1.8-2.4); POTASSIUM 4.3 MMOL/L (3.6-5.0); SODIUM 139 MMOL/L (135-145); TOTAL PROTEIN 7.1 GM/DL (6.4-8.2)
--- NOTE | 2019-02-26 19:08 | Diagnostic Imaging Report ---
Portable chest compared to prior study from December 21, 2016. INDICATION: Right-sided chest pain. FINDINGS: The lungs appear clear without focal infiltrate or evidence of an effusion. There is no pneumothorax. Heart size and mediastinal contours appear appropriate. Pulmonary vascularity appears normal. No acute osseous abnormality is evident. IMPRESSION: 1. No radiographic evidence of an acute cardiopulmonary process. 2. No evidence of rib fracture. Dictated by: Dictated on workstation # [id number]
[2019-02-26] MEDS ORDERED: IOHEXOL 350 MG/ML 100 ML (OMNIPAQUE 350) VIAL IV ONE (20:30)
[2019-02-26] MEDS ORDERED: HOLD METFORMIN - RECEIVED CONTRAST 20 ML VIAL IV SCH (20:30)
--- NOTE | 2019-02-26 20:49 | Diagnostic Imaging Report ---
PROCEDURE: CT abdomen and pelvis with contrast. TECHNIQUE: Multiple contiguous axial images were obtained through the abdomen and pelvis after administration of intravenous contrast. Auto Exposure Controls were utilized during the CT exam to meet ALARA standards for radiation dose reduction. INDICATION: Right-sided abdominal and right shoulder pain. COMPARISON: No relevant comparison available. FINDINGS: The lung bases demonstrate some minimal dependent atelectasis. There is no pleural or pericardial effusion. The liver demonstrates no evidence of a focal intrahepatic abnormality. The gallbladder is nondistended without radiodense gallstone or evidence of biliary dilatation. The spleen appears normal in size. The pancreas is unremarkable. There is no adrenal mass. There are bilateral masses involving the kidneys. The larger is on the right. This mass measures up to 7.2 x 4.7 x 4.9 cm. A smaller mass on the left measures 2.4 x 2.6 x 1.5 cm. Again there is a questionable tiny similar lesion at the inferior pole of the left kidney which may be a small region of cortical scarring. These masses demonstrate internal septations but are largely of fat density. 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 Other neoplastic entity do contain fat which includes renal cell carcinoma and oncocytoma. Given the bilateral nature, correlate for any known history of tuberous sclerosis. The small and large bowel are normal in caliber without evidence of obstruction. There is no abnormal bowel thickening. The appendix is normal. There is no free air or free fluid. The urinary bladder, uterus and adnexa are unremarkable. There are no pathologically enlarged lymph nodes. Atherosclerotic calcifications throughout the aorta. There is no acute or suspicious osseous abnormality. IMPRESSION: 1. Bilateral renal masses largely composed of macroscopic fat. 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 Bilateral renal angiomyolipomas are often seen in the setting of tuberous sclerosis complex. Correlate for any known history of a seizure disorder. Brain imaging could be considered if clinically appropriate. 2. Less likely etiologies of fat-containing lesions do include neoplastic processes such as renal cell carcinoma. Fat can also be contained in oncocytomas. 3. The kidneys appear nonobstructed without hydronephrosis though the right-sided renal mass does displace the right-sided proximal ureter. 4. No findings of an acute inflammatory or obstructive process. 5. No findings to suggest metastatic disease. Dictated by: Dictated on workstation # [id number]
[2019-02-26] MEDS ORDERED: ONDA4TAB11 PO (21:14)
[2019-02-26] MEDS ORDERED: ACHD5005 PO (21:14)
[2019-02-26] MEDS ORDERED: RX-HYDROCODONE/APAP 5/325 MG #4 TAB PK PO PRN (21:15)
[2019-02-26 21:35] VITALS: BP 135/85
== END 2019-02-26 21:40 | disposition home or self-care (01) ==
LOC: EDUNIT# 17:12 → ER 17:13
DX: A08.4 Viral intestinal infection, unspecified (principal); N28.89 Other specified disorders of kidney and ureter; I25.10 Atherosclerotic heart disease of native coronary artery without angina pectoris; I25.2 Old myocardial infarction; E78.00 Pure hypercholesterolemia, unspecified; I10 Essential (primary) hypertension; F41.9 Anxiety disorder, unspecified; F32.9 Major depressive disorder, single episode, unspecified; E11.40 Type 2 diabetes mellitus with diabetic neuropathy, unspecified; K21.9 Gastro-esophageal reflux disease without esophagitis; F17.210 Nicotine dependence, cigarettes, uncomplicated; Z87.442 Personal history of urinary calculi; Z82.49 Family history of ischemic heart disease and other diseases of the circulatory system; Z87.19 Personal history of other diseases of the digestive system; Z88.0 Allergy status to penicillin; Z95.5 Presence of coronary angioplasty implant and graft; Z88.4 Allergy status to anesthetic agent; Z98.890 Other specified postprocedural states; Z98.51 Tubal ligation status; Z79.82 Long term (current) use of aspirin; Z79.02 Long term (current) use of antithrombotics/antiplatelets
CPT/HCPCS: 36415; 71045; 74177; 80053; 81000; 83690; 83735; 84484; 84703; 85025; 86141; 87088; 93005